=== PATIENT | male | born 1940 | race African-American/Black ===

== ENCOUNTER 2019-07-19 10:03 | Emergency (ER) | payer OTHER ==
[~2019-07-19] VITALS: Ht 172.7 cm; Wt 84.4 kg
[2019-07-19] MEDS ORDERED: LISI-660 PO (10:32)
[2019-07-19] MEDS ORDERED: WARF1 PO (10:32)
[2019-07-19 10:34] LABS: BASOPHILS % (AUTO) 1.4 % (0.0-2.0); EOSINOPHILS % (AUTO) 0.5 % (1.0-6.0); HEMATOCRIT 30.2 % (41-53); HEMOGLOBIN 9.6 g/dL (13.5-17.5); LYMPHOCYTES # (AUTO) 1.9 K/uL (1.0-4.8); LYMPHOCYTES % (AUTO) 30.7 % (22.0-44.0); MEAN CORPUSCULAR HGB CONC 31.9 G/dL (31.0-37.0); MEAN CORPUSCULAR VOLUME 82 fL (80-100); MONOCYTES # (AUTO) 0.6 K/uL (0.1-1.0); MONOCYTES % (AUTO) 10.1 % (2.0-9.0); NEUTROPHILS # (AUTO) 3.6 K/uL (1.8-7.7); NEUTROPHILS % (AUTO) 57.3 % (40.0-70.0); PLATELET COUNT (AUTO) 279 K/uL (150-450); RED CELL DISTRIBUTION WIDTH 19.7 % (11.5-14.5)
[2019-07-19] MEDS ORDERED: IOVERSOL 350 MG/ML 100 ML VIAL ONE (10:43)
[2019-07-19] MEDS ORDERED: SODIUM CHLORIDE 0.9% 100 ML ONE (10:43)
[2019-07-19] MEDS ORDERED: ACETAMINOPHEN 325 MG TABLET PO PRN (10:45)
[2019-07-19] MEDS ORDERED: 0.9% SODIUM CHLORIDE 10 ML SYRINGE IVP PRN (10:45)
[2019-07-19] MEDS ORDERED: ONDANSETRON HCL 4 MG/2 ML VIAL IVP PRN (10:45)
[2019-07-19 10:46] LABS: CALCIUM, TOTAL 8.8 mg/dL (8.8-10.5); CREATININE 2.14 mg/dL (0.60-1.30); INR 2.7 (0.9-1.1); POTASSIUM 4.3 mmol/L (3.5-5.1); PROTHROMBIN TIME 27.8 SEC (9.4-11.6)
[2019-07-19 10:51] LABS: ALBUMIN 2.8 g/dL (3.4-5.0); BILIRUBIN,TOTAL 0.3 mg/dL (0.1-1.0); TOTAL PROTEIN, SERUM 7.7 g/dL (6.4-8.2)
[2019-07-19] MEDS ORDERED: BISA-151 PO (11:08)
[2019-07-19] MEDS ORDERED: ATOR10TA84 PO (11:08)
[2019-07-19] MEDS ORDERED: FURO20 PO (11:08)
[2019-07-19] MEDS ORDERED: METO25 PO (11:08)
[2019-07-19] MEDS ORDERED: LevETIRAcetam 1,000 MG in DEXTROSE 5%-WATER 100 ML IV ONE (11:15)
[2019-07-19] MEDS ORDERED: ATOR40TA28 PO (11:21)
[2019-07-19] MEDS ORDERED: PHYTONADIONE 10 MG in SODIUM CHLORIDE 0.9% 50 ML IV ONE (11:30)
[2019-07-19] MEDS ORDERED: NiCARDipine HCL 25 MG in DEXTROSE 5%-WATER 240 ML IV PRN (11:36)
[2019-07-19 13:31] VITALS: BP 129/68
[2019-07-19 13:46] VITALS: BP 139/76
== END 2019-07-19 14:11 | disposition short-term general hospital (02) ==
LOC: EMS 10:07
DX: I62.00 Nontraumatic subdural hemorrhage, unspecified (principal); I10 Essential (primary) hypertension; R47.01 Aphasia; I25.2 Old myocardial infarction; Z79.899 Other long term (current) drug therapy; Z95.0 Presence of cardiac pacemaker
CPT/HCPCS: 36415; 36430; 70450; 71045; 80053; 84484; 85025; 85610; 85730; 86850; 86900; 86901; 86927; 93005; 96365; 96367; 96368; 99291; J0712; J3430; J3490; J7050 ×2; J7060 ×2; P9017; Q9967